=== PATIENT | female | born 1975 | race Caucasian/White ===

== ENCOUNTER 2019-02-24 13:16 | Emergency (ER) | payer BC ==
[~2019-02-24] VITALS: Ht 149.9 cm; Wt 66.2 kg
[2019-02-24 13:28] VITALS: Ht 149.9 cm; Wt 66.2 kg
[2019-02-24 15:22] VITALS: BP 114/85
== END 2019-02-24 15:22 | disposition home or self-care (01) ==
LOC: ED 13:16
DX: S20.219A Contusion of unspecified front wall of thorax, initial encounter (principal); Z86.2 Personal history of diseases of the blood and blood-forming organs and certain disorders involving the immune mechanism; V43.92XA Unspecified car occupant injured in collision with other type car in traffic accident, initial encounter; Y93.89 Activity, other specified; Y92.488 Other paved roadways as the place of occurrence of the external cause; Y99.8 Other external cause status

== ENCOUNTER 2020-04-03 08:16 | Emergency (ER) | payer MEDICAID ==
[~2020-04-03] VITALS: Ht 149.9 cm; Wt 68.9 kg
[2020-04-03 08:26] VITALS: Ht 149.9 cm; Wt 68.9 kg
[2020-04-03 09:16] VITALS: BP 137/79
== END 2020-04-03 09:16 | disposition home or self-care (01) ==
LOC: ED 08:16
DX: M25.511 Pain in right shoulder (principal); Z86.2 Personal history of diseases of the blood and blood-forming organs and certain disorders involving the immune mechanism
CPT/HCPCS: Q0092